=== PATIENT | female | born 1965 | race African-American/Black ===

== ENCOUNTER 2016-10-29 14:35 | Emergency (ER) | payer OTHER ==
[2016-10-29 14:52] VITALS: BP 141/77; PULSE 71; TEMP 98.5; BMI 41.9
--- NOTE | 2016-11-01 11:40 | EKG ---
Test Reason : Blood Pressure : / mmHG Vent. Rate : 063 BPM Atrial Rate : 063 BPM P-R Int : 160 ms QRS Dur : 078 ms QT Int : 406 ms P-R-T Axes : 024 -06 016 degrees QTc Int : 415 ms NORMAL SINUS RHYTHM NO PREVIOUS ECGS AVAILABLE Confirmed by SHAWN CONNOLLY MD [id number]) on 11/01/2016 11:39:31 AM Referred By: Confirmed By:SHAWN CONNOLLY MD
== END 2016-10-29 16:56 | disposition left against medical advice (07) ==
LOC: JER 14:35
DX: Z53.21 Procedure and treatment not carried out due to patient leaving prior to being seen by health care provider (principal)
CPT/HCPCS: 93005; 93010; 99281-25